=== PATIENT | male | born 1980 | race Caucasian/White ===

== ENCOUNTER 2021-01-19 14:10 | Emergency (ER) | payer MEDICAID ==
[~2021-01-19] VITALS: Ht 180.3 cm; Wt 76.2 kg
--- NOTE | 2021-01-19 14:20 | NUR ---
THE PATIENT IS IN ER FOR C/O "ACHING" CHEST PAIN AND BACK PAIN X6 DAYS PS 02/26. THE PATIENT DENIES SOB. IN ROOM AIR. RESPIRATION REGULAR AND UNLABORED. THE PATIENT IS ALERT AND ORIENTED X4. ATTACHED ON A MONITOR. WILL CONTINUE TO MONITOR THE PATIENT.
[2021-01-19] MEDS ORDERED: IV NS 0.9% 1,000 ML BAG IV ONE (14:30)
--- NOTE | 2021-01-19 14:30 | NUR ---
STARTED IV RAC G 18, BLOOD SPECIMEN COLLECTED AND SENT IT OT THE LAB.
[2021-01-19 14:38] LABS: BASOPHILS % (AUTO) 0.5 % (0.0-2.0); EOSINOPHILS % (AUTO) 1.8 % (0.0-6.0); HEMATOCRIT 45 % (39-51); HEMOGLOBIN 15.1 g/dL (13.5-17.5); LYMPHOCYTES # (AUTO) 1.9 /CMM (0.8-4.8); LYMPHOCYTES % (AUTO) 27.1 % (20.0-44.0); MEAN CORPUSCULAR HGB CONC 34 g/dl (31.0-36.0); MEAN CORPUSCULAR VOLUME 93 fL (80-96); MONOCYTES # (AUTO) 0.6 /CMM (0.1-1.30); MONOCYTES % (AUTO) 8.7 % (2.0-12.0); NEUTROPHILS # (AUTO) 4.4 /CMM (1.8-8.9); NEUTROPHILS % (AUTO) 61.9 % (43.0-81.0); PLATELET COUNT (AUTO) 256 /CMM (150-450); RED BLOOD CELL COUNT(AUTO) 4.83 MIL/uL (4.5-6.0); WHITE BLOOD COUNT (AUTO) 7.1 K/uL (4.3-11.0)
[2021-01-19 15:01] LABS: ALANINE AMINOTRANSFERASE 33 U/L (12-78); ALKALINE PHOSPHATASE 62 U/L (46-116); ASPARTATE AMINOTRANSFERASE 31 U/L (15-37); BILIRUBIN,DIRECT 0.1 mg/dL (0.0-0.2); BILIRUBIN,TOTAL 0.6 mg/dL (0.2-1.0); CARBON DIOXIDE 27 mmol/L (21-32); CHLORIDE 106 mmol/L (98-107); CREATININE 0.9 mg/dL (0.6-1.3); GLUCOSE 123 mg/dL (74-106); SODIUM SERUM 142 mmol/L (136-145); TOTAL PROTEIN, SERUM 7.9 g/dL (6.4-8.2); UREA NITROGEN, BLOOD 23 mg/dL (7-18)
[2021-01-19] MEDS ORDERED: KETOROLAC TROMETHAMINE INJ 30 MG/ML VIAL ONE (15:29)
[2021-01-19] MEDS ORDERED: KETOROLAC TROMETHAMINE INJ 30 MG/ML VIAL IV ONE (15:30)
[2021-01-19 15:34] LABS: POTASSIUM 4.4 mmol/L (3.5-5.1)
[2021-01-19] MEDS ORDERED: IBUP-1955 PO (15:39)
[2021-01-19 16:02] VITALS: BP 135/82
--- NOTE | 2021-01-19 16:02 | NUR ---
Patient discharged to home in stable condition. Written and verbal after care instructions given. Patient verbalizes understanding of instruction. The patient left ER in stable condition.
== END 2021-01-19 16:02 | disposition home or self-care (01) ==
LOC: ER 14:16
DX: I30.9 Acute pericarditis, unspecified (principal)
CPT/HCPCS: 36415; 71045; 80048; 80076; 84484; 85025; 85652; 93005 ×3; 96361; 96374; 99285; J1885; J7030

== ENCOUNTER 2021-10-29 17:54 | Inpatient (IN) | payer MEDICAID ==
[~2021-10-29] VITALS: Ht 180.3 cm; Wt 83.9 kg
[~2021-10-29 17:54] MED LIST: IBUP-1955 PO
--- NOTE | 2021-10-29 18:05 | NUR ---
BIB SELF SENT FROM URGENT CARE FOR POSSIBLE APPENDICITIS C/O RLQ ABDOMINAL PAIN X2 DAYS. RATES PAIN 5/10. DENIES N/V AT THIS TIME. WILL CONTINUE TO MONITOR THE PATIENT.
[2021-10-29] MEDS ORDERED: IV NS 0.9% 1,000 ML BAG IV ONE (18:30)
--- NOTE | 2021-10-29 18:59 | NUR ---
X-RAY TECH AT THE BEDSIDE
--- NOTE | 2021-10-29 19:13 | NUR ---
COVID ANTIGEN SWAB DONE AND SENT TO THE LAB
--- NOTE | 2021-10-29 19:36 | NUR ---
REPORT GIVEN TO NURSE MABEL FOR DIPTI
[2021-10-29 19:46] LABS: CALCIUM, SERUM 8.5 mg/dL (8.5-10.1); POTASSIUM 4.1 mmol/L (3.5-5.1)
[2021-10-29 19:50] LABS: BASOPHILS % (AUTO) 0.3 % (0.0-2.0); EOSINOPHILS % (AUTO) 1.6 % (0.0-6.0); HEMATOCRIT 40 % (39-51); HEMOGLOBIN 13.9 g/dL (13.5-17.5); LYMPHOCYTES # (AUTO) 2.1 K/uL (0.8-4.8); LYMPHOCYTES % (AUTO) 27.3 % (20.0-44.0); MEAN CORPUSCULAR HGB CONC 35 g/dl (31.0-36.0); MEAN CORPUSCULAR VOLUME 95 fL (80-96); MONOCYTES # (AUTO) 0.6 K/uL (0.1-1.30); MONOCYTES % (AUTO) 8.4 % (2.0-12.0); NEUTROPHILS # (AUTO) 4.7 K/uL (1.8-8.9); NEUTROPHILS % (AUTO) 62.4 % (43.0-81.0); PLATELET COUNT (AUTO) 249 K/uL (150-450); RED BLOOD CELL COUNT(AUTO) 4.23 MIL/uL (4.5-6.0); WHITE BLOOD COUNT (AUTO) 7.5 K/uL (4.3-11.0)
[2021-10-29 19:52] LABS: ALBUMIN 3.9 g/dL (3.4-5.0); BILIRUBIN,DIRECT 0.1 mg/dL (0.0-0.2); BILIRUBIN,TOTAL 0.5 mg/dL (0.2-1.0); TOTAL PROTEIN, SERUM 7.2 g/dL (6.4-8.2)
[2021-10-29 20:18] LABS: BILIRUBIN,URINE NEGATIVE (NEGATIVE); COLOR,URINE YELLOW (YELLOW); NITRITE, URINE NEGATIVE (NEGATIVE); PROTEIN,URINE NEGATIVE (NEGATIVE); UGLUCOSE NEGATIVE (NEGATIVE); UROBILINOGEN,URINE 0.2 EU/dL (0.2)
[2021-10-29 20:19] LABS: LEUKOCYTE ESTERASE ,URINE NEGATIVE (NEGATIVE)
--- NOTE | 2021-10-29 20:47 | NUR ---
EMERITA MONTEZ ON THE PHONE WITH DR BOWMAN, GENERAL SURGEON
--- NOTE | 2021-10-29 20:52 | NUR ---
PHILLIP ARAIZA ON THE PHONE WITH DR RING
--- NOTE | 2021-10-29 20:57 | NUR ---
ADMITTING ORDERS OBTAINED FROM DR RING
[2021-10-29] MEDS ORDERED: PIPERACILLIN /TAZOBACTAM 3.375 G VIAL IV ONE (20:59)
[2021-10-29] MEDS ORDERED: PIPERACILLIN /TAZOBACTAM 3.375 G in IV D5W 50 ML IV ONE (21:00)
[2021-10-29] MEDS ORDERED: BUPR100T5 PO (21:05)
[2021-10-29] MEDS ORDERED: FINA1TAB11 PO (21:05)
[2021-10-29] MEDS ORDERED: METF-440 PO (21:05)
[2021-10-29] MEDS ORDERED: FAMO40TA7 PO (21:05)
[2021-10-29] MEDS ORDERED: LISI-768 PO (21:05)
[2021-10-29] MEDS ORDERED: ATOR10TA PO (21:05)
[2021-10-29] MEDS ORDERED: EMTR1TAB6 PO (21:05)
--- NOTE | 2021-10-29 21:35 | NUR ---
RN WILL CALL BACK FOR REPORT
--- NOTE | 2021-10-29 21:51 | NUR ---
REPORT GIVEN TO NURSE
[2021-10-29 22:15] VITALS: BP 147/100
--- NOTE | 2021-10-29 22:21 | NUR ---
PT TRANSFERRED IN STABLE CONDITION
--- NOTE | 2021-10-29 22:25 | NUR ---
ROXANA RECEIVED FROM ER VIA [facility] A 41 Y/O MALE WITH CC OF RIGHT LOWER QUADRANT PAIN, STATED JUST WENT TO URGENT CARE FOR COVID TEST AND SUDDENLY HAD ABD PAIN AND WAS SENT TO ER. ALERT ORIENTED X4, AMBULATORY, SCALE OF 2/10 FOR PAIN, APPEARS VERY ANXIOUS AND NERVOUS, STATED WAS HIS FIRST SURGERY. HL RIGHT AC GAUGE 20 PATENT. ORIENTED TO ROON FACILITIES, SAFETY PRECAUTIONS EMPHASIZED, UNDERSTANDS PLAN OF CARE AND MEDICATION REGIMEN.WILL KEEP NPO ORDERED. FOR SURGERY IN AM.LL NEEDS MADE, KEPT COMFORTABLE.
[2021-10-29 22:30] VITALS: BP 18/79
[2021-10-29] MEDS ORDERED: HYDROCODONE/APAP 5/325MG TABLET PO PRN (22:30)
[2021-10-29] MEDS ORDERED: ONDANSETRON HCL/PF 4 MG/2 ML VIAL IV PRN (22:30)
[2021-10-29] MEDS ORDERED: HYDROMORPHONE 1 MG/1 ML DISP.SYRIN IV PRN (22:30)
[2021-10-29] MEDS ORDERED: ZOLPIDEM TARTRATE 5 MG TABLET PO PRN (22:30)
[2021-10-29] MEDS ORDERED: ACETAMINOPHEN 325 MG TABLET PO PRN (22:30)
[2021-10-29] MEDS ORDERED: INSULIN REGULAR, HUMAN 100 UNIT/ML 3 ML VIAL SQ PRN (23:00)
[2021-10-29] MEDS ORDERED: IV 1/2NS 1000 ML 1,000 ML IV PRN (23:00)
[2021-10-29] MEDS ORDERED: DEXTROSE 50%-WATER 50 ML DISP.SYRIN IV PRN (23:00)
--- NOTE | 2021-10-30 | NUR ---
MSRN STARTED ON 10/21 NS AT 100 CC/HR VIA RIGHT AC INFUSING WELL. BS 124. NO COVERAGE. WENT TO RESTROOM VOIDED FREELY.ASSESSED FOR ABD DISCOMFORTS STATED DOES NOT NEED PAIN MED AND IS TOLERABLE OF THIS TIME/ WILL CALL IF PAIN WORSENS.
[2021-10-30] MEDS: BLOOD SUGAR DIAGNOSTIC 1 EACH STRIP IN SCH ×5 (00:21→12:21)
[2021-10-30] MEDS ORDERED: PIPERACILLIN /TAZOBACTAM 3.375 G VIAL IV ONE (03:45)
[2021-10-30] MEDS ORDERED: ZOSYN IVPB 3.375 G in IV D5W 50ml IV SCH (05:00)
--- NOTE | 2021-10-30 06:57 | NUR ---
MSRN CONSENTS FOR SURGERY SIGNED. ABD PAIN TOLERABLE. HAS BEEN NPO SINCE MIDNIGHT. PRESENT ZOSYN SEC DOSE INFUSING.
[2021-10-30] MEDS ORDERED: ANESTHESIA TRAY IN PYXIS 1 EA TRAY MC ONE (07:02)
[2021-10-30 07:39] LABS: BASOPHILS % (AUTO) 0.3 % (0.0-2.0); EOSINOPHILS % (AUTO) 2.9 % (0.0-6.0); HEMATOCRIT 41 % (39-51); HEMOGLOBIN 14.1 g/dL (13.5-17.5); LYMPHOCYTES # (AUTO) 2.4 K/uL (0.8-4.8); LYMPHOCYTES % (AUTO) 36.8 % (20.0-44.0); MEAN CORPUSCULAR HGB CONC 34 g/dl (31.0-36.0); MEAN CORPUSCULAR VOLUME 96 fL (80-96); MONOCYTES # (AUTO) 0.5 K/uL (0.1-1.30); MONOCYTES % (AUTO) 7.8 % (2.0-12.0); NEUTROPHILS # (AUTO) 3.4 K/uL (1.8-8.9); NEUTROPHILS % (AUTO) 52.2 % (43.0-81.0); PLATELET COUNT (AUTO) 229 K/uL (150-450); WHITE BLOOD COUNT (AUTO) 6.6 K/uL (4.3-11.0)
--- NOTE | 2021-10-30 07:54 | NUR ---
MS RN OPENING NOTES Pt IS CURRENTLY NOT ON THE FLOOR. WENT FOR LAPAROSCOPIC PROCEDURE. WILL MONITOR WHEN Pt COMES BACK.
[2021-10-30] MEDS ORDERED: BUPIVACAINE MPF W/EPI 0.25% 30 ML VIAL ONE (08:02)
[2021-10-30] MEDS ORDERED: ROCURONIUM BROMIDE 50 MG/5 ML ONE (08:08)
[2021-10-30] MEDS ORDERED: FENTANYL PF 100MCG/2ML AMPUL ONE (08:08)
[2021-10-30 08:24] LABS: CALCIUM, SERUM 8.6 mg/dL (8.5-10.1); CREATININE 1.1 mg/dL (0.6-1.3); POTASSIUM 4.1 mmol/L (3.5-5.1)
[2021-10-30] MEDS: FINASTERIDE (5 MG) 5 MG TABLET PO SCH ×2 (09:00→11:08)
[2021-10-30] MEDS ORDERED: METFORMIN 500 MG TABLET PO SCH (09:00)
[2021-10-30] MEDS ORDERED: FAMOTIDINE (20 MG) 20 MG TABLET PO SCH (09:00)
[2021-10-30] MEDS ORDERED: LISINOPRIL (5MG) 5 MG TABLET PO SCH (09:00)
[2021-10-30] MEDS ORDERED: EMTRICITABINE/TENOFOVIR 1 TAB PO SCH (09:00)
[2021-10-30] MEDS ORDERED: buPROPion SR 100 MG TABLET.ER PO SCH (09:00)
[2021-10-30] MEDS ORDERED: hydrALAZINE HCL IV 20 MG VIAL ONE (09:09)
[2021-10-30 10:00] VITALS: BP 119/79
--- NOTE | 2021-10-30 10:42 | NUR ---
MS RN NOTES Pt ARRIVED TO FLOOR AFTER PROCEDURE. A/Ox4. BREATHING ON ROOM AIR AND TOLERATING WELL. NO COMPLAINTS OF PAIN MADE AT THIS TIME. SAFETY MEASURES ARE IN PLACE, BED IS LOCKED AND IN LOWEST POSITION, SIDE RAILS UP x3, BED SIDE TABLE AND CALL LIGHT ARE WITHIN REACH. WILL CONTINUE TO MONITOR THROUGHOUT THE SHIFT.
[2021-10-30] MEDS ORDERED: CEPH500C2 PO (10:51)
[2021-10-30] MEDS ORDERED: PIPERACILLIN /TAZOBACTAM 3.375 G in IV D5W 50 ML IV SCH (12:00)
[2021-10-30] MEDS ORDERED: INSULIN REGULAR, HUMAN 100 UNIT/ML 3 ML VIAL SQ PRN (14:00)
[2021-10-30] MEDS ORDERED: BLOOD SUGAR DIAGNOSTIC 1 EACH STRIP IN SCH (14:00)
[2021-10-30] MEDS ORDERED: DEXTROSE 50%-WATER 50 ML DISP.SYRIN IV PRN (14:00)
[2021-10-30 16:38] VITALS: BP 122/76
--- NOTE | 2021-10-30 17:03 | NUR ---
MS RN NOTES: DISCHARGED Pt HAS BEEN DISCHARGED BY . Pt IS A/OX4, BREATHING ON ROOM AIR AND TOLERATING WELL. Pt IS AMBULATORY. Pt STATED NO PAIN OR DISCOMFORT AT THIS TIME. Pt HAD LUNCH, DRANK WATER, USED THE RESTROOM, AND AMBULATED. ALL WERE TOLERATED WELL. IV ACCESS WAS REMOVED, Pt's NEEDS WERE MET, SAFETY MEASURES WERE IN PLACE, AND Pt TOOK ALL OF IS BELONGINGS. Pt LEFT VIA CAR WITH FRIEND WHO PICKED HIM UP.
[2021-10-30] MEDS ORDERED: ATORVASTATIN 10 MG TABLET PO SCH (22:00)
== END 2021-10-30 17:00 | disposition home or self-care (01) | DRG 234 ==
LOC: ER 17:57 → MED 21:22
PROVIDERS: ADMIT Internal Medicine; ATTEND Internal Medicine
PROC: 0DTJ4ZZ Resection of Appendix, Percutaneous Endoscopic Approach (ICD-10-PCS; principal; 2021-10-30)
DX: K35.30 Acute appendicitis with localized peritonitis, without perforation or gangrene (principal); E11.9 Type 2 diabetes mellitus without complications; E78.5 Hyperlipidemia, unspecified; Z20.822 Contact with and (suspected) exposure to COVID-19; I10 Essential (primary) hypertension; Z79.84 Long term (current) use of oral hypoglycemic drugs
CPT/HCPCS: 36415; 71045-TC; 80048-TC; 80076-TC; 82962-TC; 83690-TC; 85025-TC; 85610-TC; 85730-TC; 86850-TC; 87081-TC; C9803; G0378; J0360; J1815; J2543; J3010; J3490; J7030; J7060